=== PATIENT | male | born 1965 | race Caucasian/White ===

== ENCOUNTER 2016-08-08 13:44 | Inpatient (IN) | payer MEDICARE, MEDICAID ==
[~2016-08-08 13:44] MED LIST: MULT-1238 PO; SERT50TA12 PO
[2016-08-08] MEDS ORDERED: MAG HYDROX/AL HYDROX/SIMETH ES 30 ML SUSPENSION UDCUP PO PRN (15:00)
[2016-08-08] MEDS ORDERED: TUBERCULIN, PURIFIED PROTEIN DERIVATIVE 5 TU/0.1 ML SYG ID ONE (15:00)
[2016-08-08] MEDS ORDERED: ZOLPIDEM TARTRATE 10 MG TABLET PO PRN (15:00)
[2016-08-08] MEDS ORDERED: LORazepam 2 MG TABLET PO PRN (15:00)
[2016-08-08] MEDS ORDERED: HydrOXYzine PAMOATE 50 MG CAPSULE PO PRN (15:00)
[2016-08-08] MEDS ORDERED: QUEtiapine FUMARATE 100 MG TABLET PO PRN (15:00)
[2016-08-08] MEDS ORDERED: MAGNESIUM HYDROXIDE SUSPENSION 30 ML UDCUP PO PRN (15:00)
[2016-08-08] MEDS ORDERED: GuaiFENesin/D-METHORPHAN [SUGAR-FREE] 200-20MG/10 ML SYRUP UDCUP PO PRN (15:00)
[2016-08-08] MEDS ORDERED: PROMETHAZINE HCL 25 MG TABLET PO PRN (15:00)
[2016-08-08] MEDS ORDERED: LOPERAMIDE HCL 2 MG CAPSULE PO PRN (15:00)
[2016-08-08] MEDS ORDERED: ACETAMINOPHEN 325 MG TABLET PO PRN (15:00)
[2016-08-08 15:17] VITALS: BP 108/60
[2016-08-08 16:16] VITALS: BP 112/68
[2016-08-08] MEDS: THIAMINE HCL 100 MG TABLET PO SCH (17:33)
[2016-08-08] MEDS: ACETAMINOPHEN 325 MG TABLET PO PRN (22:42)
[2016-08-09 07:14] VITALS: BP 107/61
[2016-08-09] MEDS ORDERED: SERTRALINE HCL 50 MG TABLET PO SCH (09:00)
[2016-08-09] MEDS: FOLIC ACID 1 MG TABLET PO SCH (09:27)
[2016-08-09] MEDS: MULTIVITAMINS WITH MINERALS, THERAPEUTIC TABLET PO SCH (09:27)
[2016-08-09] MEDS: THIAMINE HCL 100 MG TABLET PO SCH ×2 (09:27→17:35)
[2016-08-09 16:00] VITALS: BP 135/79
[2016-08-10 01:11] VITALS: BP 137/65
[2016-08-10 08:37] VITALS: BP 120/70
[2016-08-10] MEDS: MULTIVITAMINS WITH MINERALS, THERAPEUTIC TABLET PO SCH (08:48)
[2016-08-10] MEDS: FOLIC ACID 1 MG TABLET PO SCH (08:48)
[2016-08-10] MEDS: THIAMINE HCL 100 MG TABLET PO SCH ×2 (08:48→16:43)
[2016-08-10] MEDS: DULoxetine HCL 20 MG CAPSULE PO SCH (08:49)
[2016-08-10 16:20] VITALS: BP 100/60
[2016-08-11 01:19] VITALS: BP 108/69
[2016-08-11] MEDS: IBUPROFEN 600 MG TABLET PO PRN (01:32)
[2016-08-11] MEDS: THIAMINE HCL 100 MG TABLET PO SCH ×2 (08:28→16:07)
[2016-08-11] MEDS: DULoxetine HCL 20 MG CAPSULE PO SCH (08:28)
[2016-08-11] MEDS: FOLIC ACID 1 MG TABLET PO SCH (08:28)
[2016-08-11] MEDS: MULTIVITAMINS WITH MINERALS, THERAPEUTIC TABLET PO SCH (08:28)
[2016-08-11 08:36] VITALS: BP 100/69
[2016-08-11 16:23] VITALS: BP 129/65
[2016-08-11 18:28] VITALS: BP 118/68
[2016-08-11] MEDS: ACETAMINOPHEN 325 MG TABLET PO PRN (18:28)
[2016-08-12 00:30] VITALS: BP 105/62
[2016-08-12 08:08] VITALS: BP 102/69
[2016-08-12] MEDS: FOLIC ACID 1 MG TABLET PO SCH (08:48)
[2016-08-12] MEDS: DULoxetine HCL 20 MG CAPSULE PO SCH (08:48)
[2016-08-12] MEDS: MULTIVITAMINS WITH MINERALS, THERAPEUTIC TABLET PO SCH (08:48)
[2016-08-12] MEDS: THIAMINE HCL 100 MG TABLET PO SCH ×2 (08:48→16:07)
[2016-08-12 16:03] VITALS: BP 105/64
[2016-08-13] MEDS: THIAMINE HCL 100 MG TABLET PO SCH ×2 (08:46→16:40)
[2016-08-13] MEDS: FOLIC ACID 1 MG TABLET PO SCH (08:46)
[2016-08-13] MEDS: DULoxetine HCL 20 MG CAPSULE PO SCH (08:46)
[2016-08-13] MEDS: MULTIVITAMINS WITH MINERALS, THERAPEUTIC TABLET PO SCH (08:46)
[2016-08-13 09:13] VITALS: BP_SYST 100; BP_SYST 102; BP_DIAS 54; BP_DIAS 62
[2016-08-13 16:14] VITALS: BP 113/73
[2016-08-13] MEDS: IBUPROFEN 600 MG TABLET PO PRN (18:15)
[2016-08-13 18:16] VITALS: BP 117/75
[2016-08-14 01:12] VITALS: BP 116/74
[2016-08-14] MEDS: THIAMINE HCL 100 MG TABLET PO SCH ×2 (08:36→16:56)
[2016-08-14] MEDS: FOLIC ACID 1 MG TABLET PO SCH (08:36)
[2016-08-14] MEDS: MULTIVITAMINS WITH MINERALS, THERAPEUTIC TABLET PO SCH (08:36)
[2016-08-14] MEDS: DULoxetine HCL 20 MG CAPSULE PO SCH (08:37)
[2016-08-14 10:00] VITALS: BP 106/63
[2016-08-14 16:03] VITALS: BP 108/68
[2016-08-14 20:31] VITALS: BP 112/65
[2016-08-14] MEDS: ACETAMINOPHEN 325 MG TABLET PO PRN (20:31)
[2016-08-15] MEDS: MULTIVITAMINS WITH IRON TABLET PO SCH (08:28)
[2016-08-15] MEDS: FOLIC ACID 1 MG TABLET PO SCH (08:28)
[2016-08-15] MEDS: THIAMINE HCL 100 MG TABLET PO SCH ×2 (08:28→16:11)
[2016-08-15] MEDS: DULoxetine HCL 20 MG CAPSULE PO SCH (08:28)
[2016-08-15 08:43] VITALS: BP 101/59
[2016-08-15 13:41] VITALS: BP 110/64
[2016-08-15] MEDS: IBUPROFEN 600 MG TABLET PO PRN (13:41)
[2016-08-15] MEDS ORDERED: DULO20CA30 PO ×2 (14:31→17:07)
[2016-08-16 08:16] VITALS: BP 109/65
[2016-08-16] MEDS: THIAMINE HCL 100 MG TABLET PO SCH (08:52)
[2016-08-16] MEDS: MULTIVITAMINS WITH IRON TABLET PO SCH (08:52)
[2016-08-16] MEDS: DULoxetine HCL 20 MG CAPSULE PO SCH (08:52)
[2016-08-16] MEDS: FOLIC ACID 1 MG TABLET PO SCH (08:52)
== END 2016-08-16 10:29 | DRG 885 ==
LOC: B3A 17:02 → B2S 08-10 13:42
PROVIDERS: ADMIT Psychiatry & Neurology Psychiatry; ATTEND Psychiatry & Neurology Psychiatry
PROC: GZHZZZZ Group Psychotherapy (ICD-10-PCS; principal; 2016-08-08)
PROC: GZ51ZZZ Individual Psychotherapy, Behavioral (ICD-10-PCS; 2016-08-08)
DX: F33.2 Major depressive disorder, recurrent severe without psychotic features (principal); G80.9 Cerebral palsy, unspecified; F17.210 Nicotine dependence, cigarettes, uncomplicated; D64.9 Anemia, unspecified; Z53.29 Procedure and treatment not carried out because of patient's decision for other reasons; Z99.3 Dependence on wheelchair; Z91.19 Patient's noncompliance with other medical treatment and regimen; Z59.0 Homelessness; Z65.3 Problems related to other legal circumstances

== ENCOUNTER 2017-01-29 18:30 | Inpatient (IN) | payer MEDICARE, MEDICAID ==
[~2017-01-29 18:30] MED LIST changes: -MULT-1238 PO
[2017-01-29] MEDS ORDERED: LORazepam 1 MG TABLET PO PRN (22:30)
[2017-01-29] MEDS ORDERED: ZOLPIDEM TARTRATE 10 MG TABLET PO PRN (22:30)
[2017-01-29 22:51] VITALS: BP 128/82
[2017-01-29] MEDS ORDERED: INFLUENZA VIRUS VACCINE QVS 2017-18 (3YR+)/PF 60 MCG/0.5 ML SYRINGE IM ONE (23:30)
[2017-01-29] MEDS ORDERED: PNEUMOCOCCAL VACCINE POLYVALENT 0.5 ML VIAL [PPSV23] IM ONE (23:30)
[2017-01-30 03:40] VITALS: BP 116/63
[2017-01-30] MEDS ORDERED: SERTRALINE HCL 50 MG TABLET PO SCH (09:00)
[2017-01-30 09:52] VITALS: BP 121/65
[2017-01-30] MEDS ORDERED: IBUPROFEN 400 MG TABLET PO PRN (12:30)
[2017-01-30] MEDS ORDERED: ACETAMINOPHEN 325 MG TABLET PO PRN ×2 (12:30→18:15)
[2017-01-30] MEDS ORDERED: MAGNESIUM HYDROXIDE SUSPENSION 30 ML UDCUP PO PRN (18:15)
[2017-01-30] MEDS ORDERED: LOPERAMIDE HCL 2 MG CAPSULE PO PRN (18:15)
[2017-01-30] MEDS ORDERED: MAG HYDROX/AL HYDROX/SIMETH ES 30 ML SUSPENSION UDCUP PO PRN (18:15)
[2017-01-30] MEDS ORDERED: GuaiFENesin/D-METHORPHAN [SUGAR-FREE] 200-20MG/10 ML SYRUP UDCUP PO PRN (18:15)
[2017-01-30] MEDS ORDERED: PROMETHAZINE HCL 25 MG TABLET PO PRN (18:15)
[2017-01-30 21:55] VITALS: BP 124/65
[2017-01-31] MEDS: DULoxetine HCL 20 MG CAPSULE PO SCH (09:00)
[2017-01-31] MEDS: FOLIC ACID 1 MG TABLET PO SCH (10:20)
[2017-01-31] MEDS: MULTIVITAMINS WITH MINERALS, THERAPEUTIC TABLET PO SCH (10:20)
[2017-01-31] MEDS: THIAMINE HCL 100 MG TABLET PO SCH ×2 (10:20→17:41)
[2017-01-31 16:11] VITALS: BP 104/60
[2017-02-01 02:29] VITALS: BP 118/69
[2017-02-01] MEDS: HydrOXYzine PAMOATE 50 MG CAPSULE PO PRN (03:12)
[2017-02-01] MEDS: DULoxetine HCL 20 MG CAPSULE PO SCH (10:01)
[2017-02-01] MEDS: MULTIVITAMINS WITH MINERALS, THERAPEUTIC TABLET PO SCH (10:01)
[2017-02-01] MEDS: THIAMINE HCL 100 MG TABLET PO SCH ×2 (10:01→16:33)
[2017-02-01] MEDS: FOLIC ACID 1 MG TABLET PO SCH (10:01)
[2017-02-01 16:00] VITALS: BP 119/70
[2017-02-02] MEDS: MULTIVITAMINS WITH MINERALS, THERAPEUTIC TABLET PO SCH (08:29)
[2017-02-02] MEDS: THIAMINE HCL 100 MG TABLET PO SCH ×2 (08:29→16:35)
[2017-02-02] MEDS: FOLIC ACID 1 MG TABLET PO SCH (08:29)
[2017-02-02] MEDS: DULoxetine HCL 20 MG CAPSULE PO SCH (08:29)
[2017-02-02 08:37] VITALS: BP 108/70
[2017-02-02 11:56] VITALS: BP 110/68
[2017-02-02 16:14] VITALS: BP 106/63
[2017-02-03 02:10] VITALS: BP 113/72
[2017-02-03] MEDS: HydrOXYzine PAMOATE 50 MG CAPSULE PO PRN ×2 (02:10→20:04)
[2017-02-03 08:16] VITALS: BP 103/59
[2017-02-03] MEDS: MULTIVITAMINS WITH MINERALS, THERAPEUTIC TABLET PO SCH (09:46)
[2017-02-03] MEDS: FOLIC ACID 1 MG TABLET PO SCH (09:46)
[2017-02-03] MEDS: THIAMINE HCL 100 MG TABLET PO SCH ×2 (09:46→16:26)
[2017-02-03] MEDS: DULoxetine HCL 20 MG CAPSULE PO SCH (09:46)
[2017-02-03 16:12] VITALS: BP 108/62
[2017-02-04 02:03] VITALS: BP 110/62
[2017-02-04 08:26] VITALS: BP 106/62
[2017-02-04] MEDS: DULoxetine HCL 20 MG CAPSULE PO SCH (09:20)
[2017-02-04] MEDS: FOLIC ACID 1 MG TABLET PO SCH (09:20)
[2017-02-04] MEDS: MULTIVITAMINS WITH MINERALS, THERAPEUTIC TABLET PO SCH (09:20)
[2017-02-04] MEDS: THIAMINE HCL 100 MG TABLET PO SCH ×2 (09:20→16:33)
[2017-02-04 16:00] VITALS: BP 109/60
[2017-02-04 18:38] VITALS: BP 112/67
[2017-02-05 00:01] VITALS: BP 110/71
[2017-02-05 08:03] VITALS: BP 126/60
[2017-02-05] MEDS: FOLIC ACID 1 MG TABLET PO SCH (08:13)
[2017-02-05] MEDS: DULoxetine HCL 20 MG CAPSULE PO SCH (08:13)
[2017-02-05] MEDS: THIAMINE HCL 100 MG TABLET PO SCH ×2 (08:13→16:32)
[2017-02-05] MEDS: MULTIVITAMINS WITH MINERALS, THERAPEUTIC TABLET PO SCH (08:13)
[2017-02-05 16:05] VITALS: BP 113/67
[2017-02-05] MEDS ORDERED: DiphenhydrAMINE HCL 25 MG CAPSULE PO ONE (21:00)
[2017-02-06 00:01] VITALS: BP 114/73
[2017-02-06 08:16] VITALS: BP 109/60
[2017-02-06] MEDS: DULoxetine HCL 20 MG CAPSULE PO SCH (09:39)
[2017-02-06] MEDS: THIAMINE HCL 100 MG TABLET PO SCH (09:40)
[2017-02-06] MEDS: FOLIC ACID 1 MG TABLET PO SCH (09:40)
[2017-02-06] MEDS: MULTIVITAMINS WITH MINERALS, THERAPEUTIC TABLET PO SCH (09:40)
[2017-02-06] MEDS ORDERED: DULO20CA30 PO (12:59)
== END 2017-02-06 15:00 | disposition home or self-care (01) | DRG 751 ==
LOC: EDSTATUS 23:46 → AHU 01-30 00:10 → B2X 01-30 16:56
PROVIDERS: ADMIT Psychiatry & Neurology Psychiatry; ATTEND Psychiatry & Neurology Psychiatry
DX: F33.2 Major depressive disorder, recurrent severe without psychotic features (principal); R45.851 Suicidal ideations; R17 Unspecified jaundice; F41.0 Panic disorder [episodic paroxysmal anxiety]; G80.9 Cerebral palsy, unspecified; F17.210 Nicotine dependence, cigarettes, uncomplicated; F10.10 Alcohol abuse, uncomplicated; F19.10 Other psychoactive substance abuse, uncomplicated; D64.9 Anemia, unspecified; Z59.0 Homelessness; Z79.899 Other long term (current) drug therapy; Z99.3 Dependence on wheelchair; Z91.19 Patient's noncompliance with other medical treatment and regimen; Z28.21 Immunization not carried out because of patient refusal
CPT/HCPCS: 90471

== ENCOUNTER 2017-02-11 14:21 | Inpatient (IN) | payer MEDICARE, MEDICAID ==
[~2017-02-11 14:21] MED LIST changes: +DULO20CA30 PO; -SERT50TA12 PO
[2017-02-11 15:21] VITALS: BP 126/72
[2017-02-11] MEDS ORDERED: ZOLPIDEM TARTRATE 10 MG TABLET PO PRN (15:30)
[2017-02-11] MEDS ORDERED: LORazepam 2 MG TABLET PO PRN (15:30)
[2017-02-11] MEDS ORDERED: INFLUENZA VIRUS VACCINE QVS 2017-18 (3YR+)/PF 60 MCG/0.5 ML SYRINGE IM ONE (16:00)
[2017-02-11 16:13] VITALS: BP 118/85
[2017-02-12 01:26] VITALS: BP 120/70
[2017-02-12 08:26] VITALS: BP 107/61
[2017-02-12] MEDS: DULoxetine HCL 20 MG CAPSULE PO SCH (08:29)
[2017-02-12] MEDS: IBUPROFEN 400 MG TABLET PO PRN ×2 (08:29→17:28)
[2017-02-12] MEDS: CLOTRIMAZOLE 1% 15 GM CREAM TP SCH ×2 (08:30→16:55)
[2017-02-12] MEDS: MULTIVITAMINS, THERAPEUTIC TABLET PO SCH (10:20)
[2017-02-12] MEDS: OMEGA-3/DHA/EPA/FISH OIL 500 MG CAPSULE PO SCH (10:20)
[2017-02-12 16:20] VITALS: BP 107/63
[2017-02-13] MEDS: OMEGA-3/DHA/EPA/FISH OIL 500 MG CAPSULE PO SCH (08:38)
[2017-02-13] MEDS: DULoxetine HCL 20 MG CAPSULE PO SCH (08:38)
[2017-02-13] MEDS: ACETAMINOPHEN 325 MG TABLET PO PRN (08:38)
[2017-02-13] MEDS: MULTIVITAMINS, THERAPEUTIC TABLET PO SCH (08:38)
[2017-02-13] MEDS: CLOTRIMAZOLE 1% 15 GM CREAM TP SCH ×2 (08:39→16:24)
[2017-02-13] MEDS ORDERED: GuaiFENesin/D-METHORPHAN [SUGAR-FREE] 200-20MG/10 ML SYRUP UDCUP PO PRN (11:30)
[2017-02-13] MEDS ORDERED: PROMETHAZINE HCL 25 MG TABLET PO PRN (11:30)
[2017-02-13] MEDS ORDERED: MAGNESIUM HYDROXIDE SUSPENSION 30 ML UDCUP PO PRN (11:30)
[2017-02-13] MEDS ORDERED: LOPERAMIDE HCL 2 MG CAPSULE PO PRN (11:30)
[2017-02-13] MEDS ORDERED: MAG HYDROX/AL HYDROX/SIMETH ES 30 ML SUSPENSION UDCUP PO PRN (11:30)
[2017-02-13] MEDS: IBUPROFEN 400 MG TABLET PO PRN (14:55)
[2017-02-13 16:24] VITALS: BP 108/65
[2017-02-13] MEDS: THIAMINE HCL 100 MG TABLET PO SCH (16:24)
[2017-02-14] MEDS: DULoxetine HCL 30 MG CAPSULE PO SCH (09:52)
[2017-02-14] MEDS: FOLIC ACID 1 MG TABLET PO SCH (09:52)
[2017-02-14] MEDS: MULTIVITAMINS, THERAPEUTIC TABLET PO SCH (09:52)
[2017-02-14] MEDS: OMEGA-3/DHA/EPA/FISH OIL 500 MG CAPSULE PO SCH (09:52)
[2017-02-14] MEDS: THIAMINE HCL 100 MG TABLET PO SCH ×2 (09:52→16:12)
[2017-02-14] MEDS: CLOTRIMAZOLE 1% 15 GM CREAM TP SCH ×2 (09:53→16:13)
[2017-02-14 12:32] VITALS: BP 113/68
[2017-02-14] MEDS: ACETAMINOPHEN 325 MG TABLET PO PRN (12:32)
[2017-02-14] MEDS: HydrOXYzine PAMOATE 50 MG CAPSULE PO PRN (13:58)
[2017-02-14 16:03] VITALS: BP 105/62
[2017-02-15 08:10] VITALS: BP 106/62
[2017-02-15] MEDS: CLOTRIMAZOLE 1% 15 GM CREAM TP SCH ×2 (09:14→16:39)
[2017-02-15] MEDS: OMEGA-3/DHA/EPA/FISH OIL 500 MG CAPSULE PO SCH (09:14)
[2017-02-15] MEDS: MULTIVITAMINS, THERAPEUTIC TABLET PO SCH (09:14)
[2017-02-15] MEDS: DULoxetine HCL 30 MG CAPSULE PO SCH (09:14)
[2017-02-15] MEDS: THIAMINE HCL 100 MG TABLET PO SCH ×2 (09:14→16:39)
[2017-02-15] MEDS: FOLIC ACID 1 MG TABLET PO SCH (09:14)
[2017-02-15] MEDS: ACETAMINOPHEN 325 MG TABLET PO PRN (14:36)
[2017-02-15 16:02] VITALS: BP 121/64
[2017-02-16 00:54] VITALS: BP 103/59
[2017-02-16 08:02] VITALS: BP 104/69
[2017-02-16] MEDS: DULoxetine HCL 30 MG CAPSULE PO SCH (08:16)
[2017-02-16] MEDS: OMEGA-3/DHA/EPA/FISH OIL 500 MG CAPSULE PO SCH (08:16)
[2017-02-16] MEDS: FOLIC ACID 1 MG TABLET PO SCH (08:16)
[2017-02-16] MEDS: MULTIVITAMINS, THERAPEUTIC TABLET PO SCH (08:16)
[2017-02-16] MEDS: CLOTRIMAZOLE 1% 15 GM CREAM TP SCH ×2 (08:16→17:26)
[2017-02-16] MEDS: THIAMINE HCL 100 MG TABLET PO SCH ×2 (08:16→16:50)
[2017-02-16 16:12] VITALS: BP 115/62
[2017-02-16] MEDS: HydrOXYzine PAMOATE 50 MG CAPSULE PO PRN (19:20)
[2017-02-17 04:21] VITALS: BP 112/65
[2017-02-17 08:25] VITALS: BP 101/60
[2017-02-17] MEDS: FOLIC ACID 1 MG TABLET PO SCH (09:07)
[2017-02-17] MEDS: DULoxetine HCL 30 MG CAPSULE PO SCH (09:07)
[2017-02-17] MEDS: MULTIVITAMINS, THERAPEUTIC TABLET PO SCH (09:07)
[2017-02-17] MEDS: THIAMINE HCL 100 MG TABLET PO SCH ×2 (09:07→16:05)
[2017-02-17] MEDS: OMEGA-3/DHA/EPA/FISH OIL 500 MG CAPSULE PO SCH (09:07)
[2017-02-17] MEDS: CLOTRIMAZOLE 1% 15 GM CREAM TP SCH ×2 (09:09→16:06)
[2017-02-17 16:14] VITALS: BP 111/63
[2017-02-18 00:54] VITALS: BP 110/65
[2017-02-18 08:39] VITALS: BP 100/60
[2017-02-18] MEDS: DULoxetine HCL 20 MG CAPSULE PO SCH (09:00)
[2017-02-18] MEDS: OMEGA-3/DHA/EPA/FISH OIL 500 MG CAPSULE PO SCH (09:40)
[2017-02-18] MEDS: MULTIVITAMINS, THERAPEUTIC TABLET PO SCH (09:40)
[2017-02-18] MEDS: FOLIC ACID 1 MG TABLET PO SCH (09:40)
[2017-02-18] MEDS: THIAMINE HCL 100 MG TABLET PO SCH ×2 (09:40→16:21)
[2017-02-18] MEDS: CLOTRIMAZOLE 1% 15 GM CREAM TP SCH ×2 (09:41→16:21)
[2017-02-18 16:02] VITALS: BP 111/62
[2017-02-19 02:45] VITALS: BP 111/69
[2017-02-19 08:25] VITALS: BP 105/63
[2017-02-19] MEDS: DULoxetine HCL 20 MG CAPSULE PO SCH (09:00)
[2017-02-19] MEDS: CLOTRIMAZOLE 1% 15 GM CREAM TP SCH ×2 (09:00→16:19)
[2017-02-19] MEDS: OMEGA-3/DHA/EPA/FISH OIL 500 MG CAPSULE PO SCH (09:06)
[2017-02-19] MEDS: FOLIC ACID 1 MG TABLET PO SCH (09:06)
[2017-02-19] MEDS: MULTIVITAMINS, THERAPEUTIC TABLET PO SCH (09:06)
[2017-02-19] MEDS: THIAMINE HCL 100 MG TABLET PO SCH ×2 (09:06→16:14)
[2017-02-19 10:24] VITALS: BP 106/62
[2017-02-19] MEDS: ACETAMINOPHEN 325 MG TABLET PO PRN (10:24)
[2017-02-19] MEDS: SERTRALINE HCL 50 MG TABLET PO SCH (11:23)
[2017-02-19 16:11] VITALS: BP 112/75
[2017-02-19] MEDS ORDERED: CLOTRIMAZOLE 1% 15 GM CREAM TP PRN (21:00)
[2017-02-19] MEDS ORDERED: DiphenhydrAMINE HCL 25 MG CAPSULE PO ONE (21:15)
[2017-02-20 08:14] VITALS: BP 101/60
[2017-02-20] MEDS: OMEGA-3/DHA/EPA/FISH OIL 500 MG CAPSULE PO SCH (09:04)
[2017-02-20] MEDS: THIAMINE HCL 100 MG TABLET PO SCH ×2 (09:04→15:52)
[2017-02-20] MEDS: FOLIC ACID 1 MG TABLET PO SCH (09:04)
[2017-02-20] MEDS: MULTIVITAMINS, THERAPEUTIC TABLET PO SCH (09:04)
[2017-02-20] MEDS: SERTRALINE HCL 50 MG TABLET PO SCH (09:04)
[2017-02-20 16:03] VITALS: BP 114/60
[2017-02-20 18:52] VITALS: BP 116/67
[2017-02-20] MEDS: ACETAMINOPHEN 325 MG TABLET PO PRN (18:54)
[2017-02-20] MEDS ORDERED: DiphenhydrAMINE HCL 25 MG CAPSULE PO ONE (20:00)
[2017-02-21 08:01] VITALS: BP 102/67
[2017-02-21] MEDS: MULTIVITAMINS, THERAPEUTIC TABLET PO SCH (08:20)
[2017-02-21] MEDS: SERTRALINE HCL 100 MG TABLET PO SCH (08:20)
[2017-02-21] MEDS: FOLIC ACID 1 MG TABLET PO SCH (08:20)
[2017-02-21] MEDS: THIAMINE HCL 100 MG TABLET PO SCH ×2 (08:20→16:46)
[2017-02-21] MEDS: OMEGA-3/DHA/EPA/FISH OIL 500 MG CAPSULE PO SCH (08:21)
[2017-02-21 16:37] VITALS: BP 117/63
[2017-02-21] MEDS ORDERED: DiphenhydrAMINE HCL 25 MG CAPSULE PO ONE (20:45)
[2017-02-22 08:30] VITALS: BP 110/67
[2017-02-22] MEDS: FOLIC ACID 1 MG TABLET PO SCH (08:36)
[2017-02-22] MEDS: THIAMINE HCL 100 MG TABLET PO SCH ×2 (08:36→16:36)
[2017-02-22] MEDS: OMEGA-3/DHA/EPA/FISH OIL 500 MG CAPSULE PO SCH (08:36)
[2017-02-22] MEDS: SERTRALINE HCL 100 MG TABLET PO SCH (08:36)
[2017-02-22] MEDS: MULTIVITAMINS, THERAPEUTIC TABLET PO SCH (08:36)
[2017-02-22 16:24] VITALS: BP 113/63
[2017-02-22 19:26] VITALS: BP 117/65
[2017-02-22] MEDS: IBUPROFEN 400 MG TABLET PO PRN (19:27)
[2017-02-23 01:28] VITALS: BP 117/66
[2017-02-23 08:19] VITALS: BP 107/63
[2017-02-23] MEDS: FOLIC ACID 1 MG TABLET PO SCH (08:22)
[2017-02-23] MEDS: OMEGA-3/DHA/EPA/FISH OIL 500 MG CAPSULE PO SCH (08:22)
[2017-02-23] MEDS: THIAMINE HCL 100 MG TABLET PO SCH (08:22)
[2017-02-23] MEDS: SERTRALINE HCL 100 MG TABLET PO SCH (08:22)
[2017-02-23] MEDS: MULTIVITAMINS, THERAPEUTIC TABLET PO SCH (08:22)
[2017-02-23] MEDS ORDERED: SERT100T12 PO ×2 (15:06→16:28)
[2017-02-23] MEDS ORDERED: NALT50TA6 PO (15:07)
[2017-02-23 16:10] VITALS: BP 111/68
[2017-02-23] MEDS ORDERED: OMEG-12 PO (16:32)
[2017-02-23] MEDS ORDERED: MV-M1TAB2 PO (16:33)
[2017-02-23] MEDS: ACETAMINOPHEN 325 MG TABLET PO PRN (19:23)
[2017-02-24 02:38] VITALS: BP 108/71
== END 2017-02-24 07:48 | disposition home or self-care (01) | DRG 885 ==
LOC: B2X 15:41
PROVIDERS: ADMIT Psychiatry & Neurology Psychiatry; ATTEND Psychiatry & Neurology Psychiatry
DX: F33.2 Major depressive disorder, recurrent severe without psychotic features (principal); D69.6 Thrombocytopenia, unspecified; R45.851 Suicidal ideations; F10.20 Alcohol dependence, uncomplicated; D50.9 Iron deficiency anemia, unspecified; F19.10 Other psychoactive substance abuse, uncomplicated; F41.9 Anxiety disorder, unspecified; G80.9 Cerebral palsy, unspecified; Z59.0 Homelessness; Z99.3 Dependence on wheelchair; Z79.899 Other long term (current) drug therapy; Z71.41 Alcohol abuse counseling and surveillance of alcoholic; Z71.51 Drug abuse counseling and surveillance of drug abuser; Z28.21 Immunization not carried out because of patient refusal
CPT/HCPCS: 87081; 90471

== ENCOUNTER 2017-03-03 21:00 | Inpatient (IN) | payer MEDICAID, MEDICARE ==
[~2017-03-03 21:00] MED LIST changes: -DULO20CA30 PO; +MV-M1TAB2 PO; +NALT50TA6 PO; +OMEG-12 PO; +SERT100T12 PO
[2017-03-03 21:37] VITALS: BP 114/74
[2017-03-03] MEDS ORDERED: LORazepam 2 MG TABLET PO PRN (21:45)
[2017-03-03] MEDS ORDERED: ZOLPIDEM TARTRATE 10 MG TABLET PO PRN (21:45)
[2017-03-03] MEDS ORDERED: INFLUENZA VIRUS VACCINE QVS 2017-18 (3YR+)/PF 60 MCG/0.5 ML SYRINGE IM ONE (22:15)
[2017-03-03 22:22] VITALS: BP 120/66
[2017-03-03] MEDS: IBUPROFEN 400 MG TABLET PO PRN (22:39)
[2017-03-04 06:26] VITALS: BP 105/64
[2017-03-04 09:13] VITALS: BP 99/52
[2017-03-04] MEDS: SERTRALINE HCL 100 MG TABLET PO SCH (10:29)
[2017-03-04] MEDS: MULTIVITAMINS WITH MINERALS, THERAPEUTIC TABLET PO SCH (10:29)
[2017-03-04] MEDS: OMEGA-3/DHA/EPA/FISH OIL 500 MG CAPSULE PO SCH (10:29)
[2017-03-04] MEDS: NALTREXONE HCL 50 MG TABLET PO SCH (10:29)
[2017-03-04 16:15] VITALS: BP 120/69
[2017-03-05 06:13] VITALS: BP 119/72
[2017-03-05] MEDS: OMEGA-3/DHA/EPA/FISH OIL 500 MG CAPSULE PO SCH (08:41)
[2017-03-05] MEDS: MULTIVITAMINS WITH MINERALS, THERAPEUTIC TABLET PO SCH (08:41)
[2017-03-05] MEDS: NALTREXONE HCL 50 MG TABLET PO SCH (08:41)
[2017-03-05] MEDS: SERTRALINE HCL 100 MG TABLET PO SCH (08:41)
[2017-03-05 16:11] VITALS: BP 108/61
[2017-03-06 01:26] VITALS: BP 108/67
[2017-03-06] MEDS: NALTREXONE HCL 50 MG TABLET PO SCH (09:00)
[2017-03-06] MEDS: OMEGA-3/DHA/EPA/FISH OIL 500 MG CAPSULE PO SCH (09:00)
[2017-03-06] MEDS: MULTIVITAMINS WITH MINERALS, THERAPEUTIC TABLET PO SCH (09:00)
[2017-03-06] MEDS: SERTRALINE HCL 100 MG TABLET PO SCH (09:00)
[2017-03-06 09:57] VITALS: BP 109/59
[2017-03-06] MEDS ORDERED: GuaiFENesin/D-METHORPHAN [SUGAR-FREE] 200-20MG/10 ML SYRUP UDCUP PO PRN ×2 (10:00)
[2017-03-06] MEDS ORDERED: HydrOXYzine PAMOATE 50 MG CAPSULE PO PRN ×2 (10:00)
[2017-03-06] MEDS ORDERED: LOPERAMIDE HCL 2 MG CAPSULE PO PRN ×2 (10:00)
[2017-03-06] MEDS ORDERED: CYANOCOBALAMIN 1,000 MCG/ML VIAL IM ONE ×2 (10:00)
[2017-03-06] MEDS ORDERED: OLANZapine 5 MG RAPDIS TABLET PO PRN (10:00)
[2017-03-06] MEDS ORDERED: LORazepam 2 MG TABLET PO PRN (10:00)
[2017-03-06 16:20] VITALS: BP 103/62
[2017-03-06] MEDS: THIAMINE HCL 100 MG TABLET PO SCH (17:00)
[2017-03-06] MEDS ORDERED: THIAMINE HCL 100 MG TABLET PO SCH (17:00)
[2017-03-07] VITALS (8 sets, daily range): BP systolic 104–110; BP diastolic 60–80
[2017-03-07] MEDS ORDERED: LORazepam 2 MG TABLET PO PRN (07:00)
[2017-03-07] MEDS: LORazepam 2 MG TABLET PO SCH ×4 (09:00→20:48)
[2017-03-07] MEDS ORDERED: FOLIC ACID 1 MG TABLET PO SCH (09:00)
[2017-03-07] MEDS ORDERED: MULTIVITAMINS WITH MINERALS, THERAPEUTIC TABLET PO SCH ×2 (09:00)
[2017-03-07] MEDS: FOLIC ACID 1 MG TABLET PO SCH (09:56)
[2017-03-07] MEDS: MULTIVITAMINS WITH MINERALS, THERAPEUTIC TABLET PO SCH (09:56)
[2017-03-07] MEDS: NALTREXONE HCL 50 MG TABLET PO SCH (09:56)
[2017-03-07] MEDS: OMEGA-3/DHA/EPA/FISH OIL 500 MG CAPSULE PO SCH (09:56)
[2017-03-07] MEDS: THIAMINE HCL 100 MG TABLET PO SCH ×2 (09:56→16:34)
[2017-03-07] MEDS: SERTRALINE HCL 100 MG TABLET PO SCH (09:59)
[2017-03-08 06:24] VITALS: BP 112/63
[2017-03-08 06:25] VITALS: BP 112/63
[2017-03-08] MEDS: MULTIVITAMINS WITH MINERALS, THERAPEUTIC TABLET PO SCH (08:30)
[2017-03-08] MEDS: FOLIC ACID 1 MG TABLET PO SCH (08:30)
[2017-03-08] MEDS: SERTRALINE HCL 100 MG TABLET PO SCH (08:30)
[2017-03-08] MEDS: THIAMINE HCL 100 MG TABLET PO SCH ×2 (08:30→16:38)
[2017-03-08] MEDS: OMEGA-3/DHA/EPA/FISH OIL 1,000 MG CAPSULE PO SCH (08:30)
[2017-03-08] MEDS: LORazepam 2 MG TABLET PO SCH ×4 (08:31→21:00)
[2017-03-08 08:32] VITALS: BP 112/67
[2017-03-08] MEDS: NALTREXONE HCL 50 MG TABLET PO SCH (08:32)
[2017-03-08 16:10] VITALS: BP 105/74
[2017-03-08 16:45] VITALS: BP 108/72
[2017-03-09 06:19] VITALS: BP 103/62
[2017-03-09 06:20] VITALS: BP 103/62
[2017-03-09] MEDS ORDERED: LORazepam 1 MG TABLET PO PRN (07:00)
[2017-03-09] MEDS: LORazepam 1 MG TABLET PO SCH ×4 (09:00→20:43)
[2017-03-09] MEDS: NALTREXONE HCL 50 MG TABLET PO SCH (09:00)
[2017-03-09 09:40] VITALS: BP 106/65
[2017-03-09] MEDS: THIAMINE HCL 100 MG TABLET PO SCH ×2 (10:00→16:44)
[2017-03-09] MEDS: SERTRALINE HCL 100 MG TABLET PO SCH (10:00)
[2017-03-09] MEDS: OMEGA-3/DHA/EPA/FISH OIL 1,000 MG CAPSULE PO SCH (10:00)
[2017-03-09] MEDS: MULTIVITAMINS WITH MINERALS, THERAPEUTIC TABLET PO SCH (10:01)
[2017-03-09] MEDS: FOLIC ACID 1 MG TABLET PO SCH (10:01)
[2017-03-09] MEDS: ACETAMINOPHEN 325 MG TABLET PO PRN (14:26)
[2017-03-09 16:09] VITALS: BP 107/60
[2017-03-09 16:49] VITALS: BP 107/60
[2017-03-10 03:22] VITALS: BP 101/70
[2017-03-10] MEDS ORDERED: LORazepam 1 MG TABLET PO PRN (07:00)
[2017-03-10 08:00] VITALS: BP 107/60
[2017-03-10] MEDS: SERTRALINE HCL 100 MG TABLET PO SCH (08:11)
[2017-03-10] MEDS: FOLIC ACID 1 MG TABLET PO SCH (08:11)
[2017-03-10] MEDS: MULTIVITAMINS WITH MINERALS, THERAPEUTIC TABLET PO SCH (08:11)
[2017-03-10] MEDS: THIAMINE HCL 100 MG TABLET PO SCH ×2 (08:11→17:00)
[2017-03-10] MEDS: NALTREXONE HCL 50 MG TABLET PO SCH (08:13)
[2017-03-10] MEDS: OMEGA-3/DHA/EPA/FISH OIL 1,000 MG CAPSULE PO SCH (08:13)
[2017-03-10 08:19] VITALS: BP 107/60
[2017-03-10 16:03] VITALS: BP_SYST 109; BP_DIAS 59; BP_DIAS 60
[2017-03-10 16:28] VITALS: BP 109/60
[2017-03-11 01:00] VITALS: BP 100/72
[2017-03-11 08:15] VITALS: BP 102/64
[2017-03-11] MEDS: MULTIVITAMINS WITH MINERALS, THERAPEUTIC TABLET PO SCH (08:37)
[2017-03-11] MEDS: SERTRALINE HCL 100 MG TABLET PO SCH (08:37)
[2017-03-11] MEDS: FOLIC ACID 1 MG TABLET PO SCH (08:37)
[2017-03-11] MEDS: THIAMINE HCL 100 MG TABLET PO SCH ×2 (08:37→16:22)
[2017-03-11] MEDS: NALTREXONE HCL 50 MG TABLET PO SCH (08:38)
[2017-03-11] MEDS: OMEGA-3/DHA/EPA/FISH OIL 1,000 MG CAPSULE PO SCH (08:38)
[2017-03-11 13:37] VITALS: BP 108/66
[2017-03-11] MEDS: IBUPROFEN 400 MG TABLET PO PRN (13:37)
[2017-03-11 16:05] VITALS: BP 110/60
[2017-03-11 16:38] VITALS: BP 110/60
[2017-03-12 08:00] VITALS: BP 103/63
[2017-03-12] MEDS: THIAMINE HCL 100 MG TABLET PO SCH ×2 (08:09→16:22)
[2017-03-12] MEDS: SERTRALINE HCL 100 MG TABLET PO SCH (08:09)
[2017-03-12] MEDS: MULTIVITAMINS WITH MINERALS, THERAPEUTIC TABLET PO SCH (08:09)
[2017-03-12] MEDS: OMEGA-3/DHA/EPA/FISH OIL 1,000 MG CAPSULE PO SCH (08:11)
[2017-03-12] MEDS: NALTREXONE HCL 50 MG TABLET PO SCH (08:12)
[2017-03-12] MEDS: FOLIC ACID 1 MG TABLET PO SCH (08:12)
[2017-03-12 08:25] VITALS: BP 103/63
[2017-03-12 16:00] VITALS: BP 103/65
[2017-03-12 16:13] VITALS: BP 102/66
[2017-03-12] MEDS: ACETAMINOPHEN 325 MG TABLET PO PRN (16:22)
[2017-03-13 02:09] VITALS: BP 101/60
[2017-03-13] MEDS: SERTRALINE HCL 100 MG TABLET PO SCH (08:08)
[2017-03-13] MEDS: THIAMINE HCL 100 MG TABLET PO SCH (08:08)
[2017-03-13] MEDS: MULTIVITAMINS WITH MINERALS, THERAPEUTIC TABLET PO SCH (08:08)
[2017-03-13] MEDS: OMEGA-3/DHA/EPA/FISH OIL 1,000 MG CAPSULE PO SCH (08:08)
[2017-03-13] MEDS: FOLIC ACID 1 MG TABLET PO SCH (08:09)
[2017-03-13] MEDS: NALTREXONE HCL 50 MG TABLET PO SCH (08:09)
[2017-03-13 08:46] VITALS: BP 107/60
[2017-03-13] MEDS ORDERED: OMEG-135 PO (13:42)
[2017-03-13] MEDS ORDERED: NALT50TA PO (13:42)
[2017-03-13] MEDS ORDERED: SERT100T12 PO (13:42)
[2017-03-13] MEDS ORDERED: FISH1CAP27 PO (15:46)
== END 2017-03-13 17:55 | disposition home or self-care (01) | DRG 885 ==
LOC: EDSTATUS 21:38 → B2X 21:57
PROVIDERS: ADMIT Psychiatry & Neurology Child & Adolescent Psychiatry; ATTEND Psychiatry & Neurology Psychiatry
DX: F33.2 Major depressive disorder, recurrent severe without psychotic features (principal); R45.851 Suicidal ideations; Z91.14 Patient's other noncompliance with medication regimen; F10.10 Alcohol abuse, uncomplicated; F41.9 Anxiety disorder, unspecified; G80.9 Cerebral palsy, unspecified; D64.9 Anemia, unspecified; F19.10 Other psychoactive substance abuse, uncomplicated; G47.00 Insomnia, unspecified; Z99.3 Dependence on wheelchair; Z59.0 Homelessness
CPT/HCPCS: 87081; 99285